=== PATIENT | female | born 1990 | race Caucasian/White ===

== ENCOUNTER 2016-07-25 04:39 | Emergency (ER) | payer OTHER ==
[~2016-07-25] VITALS: Ht 172.7 cm; Wt 60.0 kg
[2016-07-25 04:44] VITALS: BP 121/77; PULSE 103; RESP 16; TEMP 98.5; O2SAT 97
[2016-07-25] MEDS ORDERED: PARO20TA2 PO (04:59)
[2016-07-25] MEDS ORDERED: CYCL5TAB PO (04:59)
[2016-07-25] MEDS ORDERED: DICY10CA12 PO (04:59)
[2016-07-25] MEDS ORDERED: GABA300C5 PO (04:59)
[2016-07-25] MEDS ORDERED: TRAZ100T4 PO (04:59)
[2016-07-25] MEDS ORDERED: LORA1TAB12 PO (04:59)
--- NOTE | 2016-07-25 05:12 | PD ---
HPI Chief Complaint: Psychiatric Symptoms Time Seen by Provider: 04:56 Travel History International Travel<30 days: No Contact w/Intl Traveler<30days: No Traveled to known affect area: No History of Present Illness HPI Patient is a 26-year-old female presents the emergency department on Hamilton act, according to Hamilton act the patient had an argument with her boyfriend today and apparently on 317 she took a handful of pills. According to the Hamilton act she told her boyfriend today that she didn't want to leave and will be better off if "she wasn't here anymore". Patient denies his accusations. She states that she was confronted by police and ultimately was tackled onto her own bed. She was placed in handcuffs and apparently was allowed by police to have an alprazolam while she was in handcuffs given to her by her mother. Patient states that when she was taken down by police they were "standing on her chest" . She does have a history of aortic stenosis and had some chest pain. She was given some nitroglycerin in route by EMS and she states currently she feels well. She does state that she has a history of depression and takes trazodone but is not suicidal at this time. Denies any abdominal pain nausea vomiting diarrhea vaginal bleeding vaginal discharge. PFSH Past Medical History Anxiety: Yes Depression: Yes Cardiovascular Problems: Yes (AORTIC STENOSIS) Gastrointestinal Disorders: Yes (ULCERS) Tetanus Vaccination: Never Vaccinated Influenza Vaccination: No ?: Not LMP: 6 WEEKS AGO Past Surgical History Surgical History: No Previous Surgery Social History Alcohol Use: No Tobacco Use: No Substance Use: Yes (MARIJUANA) Allergies-Medications (Allergen,Severity, Reaction): Coded Allergies: No Known Allergies (Unverified , 07/25/16) Reported Meds & Prescriptions Reported Meds & Active Scripts Active Reported Gabapentin 300 Mg Cap 300 Mg PO TID Dicyclomine (Dicyclomine HCl) 10 Mg Cap 10 Mg PO Q6HR Lorazepam 1 Mg Tab 1 Mg PO BID PRN Trazodone (Trazodone HCl) 100 Mg Tab 100 Mg PO HS Paroxetine (Paroxetine HCl) 20 Mg Tab 20 Mg PO DAILY Flexeril (Cyclobenzaprine HCl) 5 Mg Tab 5 Mg PO TID Review of Systems Except as stated in HPI: all other systems reviewed are Neg Physical Exam Narrative GENERAL: Well-developed well-nourished no apparent distress SKIN: No bruising no lacerations on the anterior chest wall. HEAD: Atraumatic. Normocephalic. EYES: Pupils equal and round. No scleral icterus. No injection or drainage. ENT: No nasal bleeding or discharge. Mucous membranes pink and moist. NECK: Trachea midline. No JVD. CARDIOVASCULAR: Regular rate and rhythm. No murmur appreciated. RESPIRATORY: No accessory muscle use. Clear to auscultation. Breath sounds equal bilaterally. GASTROINTESTINAL: Abdomen soft, non-tender, nondistended. Hepatic and splenic margins not palpable. MUSCULOSKELETAL: No obvious deformities. No clubbing. No cyanosis. No edema. NEUROLOGICAL: Awake and alert. No obvious cranial nerve deficits. Motor grossly within normal limits. Normal speech. Denies suicidal homicidal ideation. PSYCHIATRIC: Appropriate mood and affect; insight and judgment normal. Denies suicidal or homicidal ideation. Data Data Last Documented VS Vital Signs Date Time Temp Pulse Resp B/P Pulse Ox O2 Delivery O2 Flow Rate FiO2 07/25/16 04:44 98.5 103 16 121/77 97 Orders Complete Blood Count With Diff (07/25/16 04:56) Comprehensive Metabolic Panel (07/25/16 04:56) Ed Urine Pregnancytest Poc (07/25/16 04:56) Electrocardiogram (07/25/16 04:56) Psych Screen (07/25/16 04:56) Drug Screen, Random Urine (07/25/16 04:56) Alcohol (Ethanol) (07/25/16 04:56) Salicylates (Aspirin) (07/25/16 04:56) Tylenol (Acetaminophen) (07/25/16 04:56) Troponin I (07/25/16 04:56) Chest, Single Ap (07/25/16 ) Labs Laboratory Tests Test 07/25/16 07/25/16 04:50 05:00 White Blood Count 6.9 TH/MM3 Red Blood Count 4.35 MIL/MM3 Hemoglobin 13.8 GM/DL Hematocrit 39.8 % Mean Corpuscular Volume 91.4 FL Mean Corpuscular Hemoglobin 31.6 PG Mean Corpuscular Hemoglobin 34.6 % Concent Red Cell Distribution Width 12.5 % Platelet Count 187 TH/MM3 Mean Platelet Volume 7.4 FL Neutrophils (%) (Auto) 63.5 % Lymphocytes (%) (Auto) 26.4 % Monocytes (%) (Auto) 8.8 % Eosinophils (%) (Auto) 0.8 % Basophils (%) (Auto) 0.5 % Neutrophils # (Auto) 4.4 TH/MM3 Lymphocytes # (Auto) 1.8 TH/MM3 Monocytes # (Auto) 0.6 TH/MM3 Eosinophils # (Auto) 0.1 TH/MM3 Basophils # (Auto) 0.0 TH/MM3 CBC Comment DIFF FINAL Differential Comment Sodium Level 140 MEQ/L Potassium Level 3.5 MEQ/L Chloride Level 108 MEQ/L Carbon Dioxide Level 25.5 MEQ/L Anion Gap 7 MEQ/L Blood Urea Nitrogen 6 MG/DL Creatinine 0.77 MG/DL Estimat Glomerular Filtration 92 ML/MIN Rate Random Glucose 103 MG/DL Calcium Level 8.7 MG/DL Total Bilirubin 0.6 MG/DL Aspartate Amino Transf 18 U/L (AST/SGOT) Alanine Aminotransferase 17 U/L (ALT/SGPT) Alkaline Phosphatase 69 U/L Troponin I 0.03 NG/ML Total Protein 6.6 GM/DL Albumin 4.0 GM/DL Salicylates Level 2.8 MG/DL Acetaminophen Level LESS THAN 2.0 MCG/ML Ethyl Alcohol Level LESS THAN 3 MG/DL Urine Opiates Screen NEG Urine Barbiturates Screen NEG Urine Amphetamines Screen NEG Urine Benzodiazepines Screen NEG Urine Cocaine Screen NEG Urine Cannabinoids Screen POS MDM Medical Decision Making Medical Screen Exam Complete: Yes Emergency Medical Condition: Yes Interpretation(s) EKG shows normal sinus rhythm with a normal axis and normal R-wave progression. No concerning ST-T changes. Intervals within normal limits. This is normal EKG. Differential Diagnosis Suicidal ideation, ACS unlikely, ME likely, chest injury unlikely, acute heart failure secondary to aortic stenosis unlikely. Narrative Course Patient was roomed emergency department, she appears well in no apparent distress. Initial workup negative troponin negative, EKG and chest x-ray reassuring. Tylenol level negative. She is medically stable for psychiatric evaluation and disposition. Under Hamilton act by law enforcement. She needs to follow-up her aortic stenosis as scheduled with her physicians. Diagnosis Primary Impression: Chest pain Additional Impression: Depression Condition: Stable Jamin Barros MD July 25, 2016 05:12
[2016-07-25 05:19] LABS: AUTOMATED NEUTROPHIL # 4.4 TH/MM3 (1.8-7.7); BASOPHIL % 0.5 % (0.0-2.0); EOSINOPHIL # 0.1 TH/MM3 (0-0.4); EOSINOPHIL % 0.8 % (0.0-4.0); HEMATOCRIT 39.8 % (35.0-46.0); HEMO FLAGS DIFF FINAL; LYMPH % 26.4 % (9.0-44.0); LYMPHOCYTE # 1.8 TH/MM3 (1.0-4.8); MEAN CELL VOLUME 91.4 FL (80.0-100.0); MEAN CORPUSCULAR HEMOGLOBIN 31.6 PG (27.0-34.0); MEAN CORPUSCULAR HGB CONC 34.6 % (32.0-36.0); MONO % 8.8 % (0.0-8.0); NEUT % 63.5 % (16.0-70.0); PLATELET COUNT 187 TH/MM3 (150-450); RED BLOOD COUNT 4.35 MIL/MM3 (4.00-5.30); RED CELL DISTRIBUTION WIDTH 12.5 % (11.6-17.2); WHITE BLOOD COUNT 6.9 TH/MM3 (4.0-11.0)
[2016-07-25 05:24] LABS: AMPHETAMINE, URINE NEG (NEG); BARBITURATES, URINE NEG (NEG); COCAINE, URINE NEG (NEG)
[2016-07-25 05:30] LABS: ALT (GPT) 17 U/L (10-53); ANION GAP 7 MEQ/L (5-15); AST (GOT) 18 U/L (15-37); BICARBONATE 25.5 MEQ/L (21.0-32.0); BLOOD UREA NITROGEN 6 MG/DL (7-18); CHLORIDE 108 MEQ/L (98-107); GLOMERULAR FILTRATION RATE 92 ML/MIN (>89); POTASSIUM 3.5 MEQ/L (3.5-5.1); SODIUM (NA) 140 MEQ/L (136-145)
[2016-07-25 05:34] LABS: ACETAMINOPHEN LESS THAN 2.0 MCG/ML (10.0-30.0); ALKALINE PHOSPHATASE 69 U/L (45-117); TOTAL BILIRUBIN ADULT 0.6 MG/DL (0.2-1.0)
--- NOTE | 2016-07-25 06:12 | RADRPT ---
EXAM DATE/TIME: 07/25/2016 05:16 [facility] COMPARISON: No previous studies available for comparison. INDICATIONS : Chest pain. MEDICAL HISTORY : None. SURGICAL HISTORY : None. ENCOUNTER: Initial ACUITY: 1 day PAIN SCORE: 8/10 LOCATION: Bilateral chest FINDINGS: A single view of the chest demonstrates the lungs to be symmetrically aerated without evidence of mas s, infiltrate or effusion. The cardiomediastinal contours are unremarkable. Osseous structures are intact. CONCLUSION: No acute disease. Jose Antonio Ricks MD on July 25, 2016 at 6:10 Board Certified Radiologist. This report was verified electronically.
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
--- NOTE | 2016-07-25 14:20 | EKG ---
Date Performed: 07/25/2016 Time Performed: 05:09:57 PTAGE: 26 years EKG: Sinus rhythm POSSIBLE RIGHT VENTRICULAR CONDUCTION DELAY NORMAL FOR AGE NO PREVIOUS TRACING DOCTOR: Bayron Alfonso Interpretating Date/Time 07/25/2016 14:19:29
== END 2016-07-25 12:10 | disposition home or self-care (01) ==
LOC: NEPC 04:39
DX: R07.9 Chest pain, unspecified (principal); F32.9 Major depressive disorder, single episode, unspecified; F43.25 Adjustment disorder with mixed disturbance of emotions and conduct; Z86.79 Personal history of other diseases of the circulatory system; Z86.59 Personal history of other mental and behavioral disorders; Z87.19 Personal history of other diseases of the digestive system
CPT/HCPCS: 71010; 80053; 80307; 84484; 84703; 85025; 93005

== ENCOUNTER 2017-10-22 01:41 | Inpatient (IN) ==
[2017-10-22] MEDS ORDERED: Acetaminophen 325 MG Tablet PO PRN (03:20)
[2017-10-22] MEDS ORDERED: Aluminum/Magnesium/Simethacone Susp 30 ML UDC PO PRN ×2 (03:21→10:17)
[2017-10-22 03:36] VITALS: BP 121/75; PULSE 83; RESP 16; TEMP 97.9; O2SAT 100
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
== END 2017-10-22 12:30 | disposition home or self-care (01) ==
LOC: H270 02:50
PROVIDERS: ADMIT Psychiatry & Neurology Psychiatry; ATTEND Psychiatry & Neurology Psychiatry